=== PATIENT | male | born 1970 | race Caucasian/White ===

== ENCOUNTER 2016-03-12 05:44 | Emergency (ER) ==
[2016-03-12 05:57] VITALS: BP 148/91; TEMP 98.6; BMI 26.4
[2016-03-12] MEDS ORDERED: DECADRON 4 MG/ML SDV IM STA (06:03)
[2016-03-12] MEDS ORDERED: TORADOL IM STA (06:03)
--- NOTE | 2016-03-12 06:15 | ED.PDOC ---
General ED Provider: Dr. CARLOS ENRIQUE CORTES-ER Chief Complaint: Extremity Swelling/Pain Stated Complaint: my wrist is swollen--i didnt hurt it--i think its gout Time Seen by Physician: 05:50 Mode of Arrival: Walk-In Information Source: Patient Exam Limitations: No limitations Nursing and Triage Documentation Reviewed and Agree: Yes Musculoskeletal Complaint Exam - Hand/Wrist Complaint/Exam Location of Pain: Reports: Left, Wrist Mechanism of Injury: Reports: No known trauma Onset/Duration: several hours Symptoms Are: Still present Onset of Pain: Reports: Immediate Initial Severity: Mild Current Severity: Mild Location: Reports: Discrete (left wrist) Character: Reports: Stiffness Alleviating: Reports: None Aggravating: Reports: Movement Associated Signs and Symptoms: Reports: Swelling. Denies: Redness, Bruising, Fever, Weakness, Numbness, Tingling Hand/Wrist Findings: Present: Swelling, Warmth Tenderness: Present: Radius, Ulna Compartment Syndrome Risk Factors: Present: Pain. Absent: Paralysis, Pallor, Pulselessness, Paresthesias Differential Diagnoses: Gout, Sprain, Strain Review of Systems - Review Of Systems Constitutional: Reports: No symptoms Eyes: Reports: No symptoms Ears, Nose, Mouth, Throat: Reports: No symptoms Respiratory: Reports: No symptoms Cardiac: Reports: No symptoms GI: Reports: No symptoms : Reports: No symptoms Musculoskeletal: Reports: Joint pain, Joint swelling Skin: Reports: No symptoms Neurological: Reports: No symptoms Endocrine: Reports: No symptoms Hematologic/Lymphatic: Reports: No symptoms All Other Systems: Reviewed and Negative Past Medical History - Past Medical History Endocrine: Reports: Unknown Cardiovascular: Reports: Unknown Respiratory: Reports: Unknown Hematological: Reports: Unknown Gastrointestinal: Reports: Unknown Genitourinary: Reports: Unknown Neuro/Psych: Reports: Unknown Musculoskeletal: Reports: Gout Cancer: Reports: Unknown - Surgical History General Surgical History: Reports: Unknown - Family History Family History: Reports: Unknown - Social History Smoking Status: Current every day smoker, Heavy tobacco smoker Hx Substance Use: No Alcohol Screening: Occasionally Lives: With family - Immunizations Tetanus Shot up to Date: (UNKNOWN) Physical Exam - Physical Exam Appearance: Well-appearing, No pain distress, Well-nourished Pain Distress: Mild Eyes: SHARYN, EOMI, Conjunctiva clear ENT: Ears normal, Nose normal, Oropharynx normal Neck: Supple Respiratory: Airway patent Cardiovascular: RRR, Pulses normal, No rub, No murmur GI/: Soft Musculoskeletal: Limited ROM, Edema Skin: Warm, Dry, Normal color Neurological: Sensation intact, Motor intact, Reflexes intact, Cranial nerves intact, Alert, Oriented Psychiatric: Affect appropriate, Mood appropriate Interpretation - Radiology Interpretation Radiology Interpretation By: ED Physician Radiology Results: Negative Re-Evaluation - Re-Evaluation Time of Re-Evaluation: 07:04 Status: Improved Vital Signs Stable: Yes Pain Level: 0 Appearance: NAD Lungs: Clear Skin: Warm and Dry Neuro: Alert and Oriented X3 CV: RRR Physician Notification - Case Discussed Physician Notified: dr [email or web address] Time of Notification: 07:00 Critical Care Note - Critical Care Note Total Time (mins): 0 Course - Course Hematology/Chemistry: 03/12/16 06:40 03/12/16 06:40 Orders, Labs, Meds: Lab Review 03/12/16 06:40 WBC 10.88 H RBC 4.82 Hgb 16.1 Hct 47.1 MCV 97.7 H MCH 33.4 H MCHC 34.2 RDW Coeff of Shayne 11.9 Plt Count 231 Immature Gran % (Auto) 0.4 Neut % (Auto) 68.6 Lymph % (Auto) 18.5 [place] % (Auto) 10.9 H Eos % (Auto) 1.1 Baso % (Auto) 0.5 Immature Gran # (Auto) 0.0 Neut # 7.5 H Lymph # 2.0 [place] # 1.2 Eos # 0.1 Baso # 0.1 ESR 11 Sodium 136 Potassium 4.4 Chloride 102 Carbon Dioxide 24 Anion Gap 14.4 BUN 17 Creatinine 0.82 Estimated GFR (MDRD) 103.00 BUN/Creatinine Ratio 20.73 Glucose 133 H Uric Acid 6.9 Calcium 9.5 Total Bilirubin 0.52 AST 21 ALT 32 Alkaline Phosphatase 76 Total Protein 7.6 Albumin 4.0 Globulin 3.6 Albumin/Globulin Ratio 1.11 Orders Category Date Time Status CBC W/ AUTO DIFF Stat LAB 03/12/16 06:40 Completed COMPREHENSIVE METABOLIC PANEL Stat LAB 03/12/16 06:40 Completed ESR Stat LAB 03/12/16 06:40 Completed URIC ACID Stat LAB 03/12/16 06:40 Completed Dexamethasone 4 mg/ml Inj [Decadron 4 mg/ml Sdv] MEDS 03/12/16 06:03 Discontinued 8 mg IM ONCE STA Ketorolac Tromethamine [Toradol] MEDS 03/12/16 06:03 Discontinued 60 mg IM ONCE STA WRIST, LEFT 3 VIEWS Stat RADS 03/12/16 06:02 Completed Medications Discontinued Medications Generic Name Dose Route Start Last Admin Trade Name Edwar PRN Reason Stop Dose Admin Dexamethasone Sodium Phosphate 8 mg 03/12/16 06:03 03/12/16 06:14 Decadron 4 Mg/Ml Sdv IM 03/12/16 06:04 8 mg ONCE STA Administration Ketorolac Tromethamine 60 mg 03/12/16 06:03 03/12/16 06:15 Toradol IM 03/12/16 06:04 60 mg ONCE STA Administration Vital Signs: Temp Pulse Resp BP Pulse Ox 03/12/16 05:46 98.6 F 110 H 18 148/91 H 99 Departure - Departure Time of Disposition: 07:04 Disposition: HOME SELF-CARE Discharge Problem: Gout attack Qualifiers: Gout site: wrist Gout etiology: unspecified cause Laterality: left Qualifier Code: (M10.9) Gout, unspecified Instructions: Gout (ED), Low Purine Diet (ED) Condition: Good Pt referred to PMD for follow-up: Yes Additional Instructions: medrol dose pack--f/u with pcp Allergies/Adverse Reactions: Allergies No Known Drug Allergies Adverse Reaction (Verified 03/12/16 05:57) Home Medications: Ambulatory Orders Aspirin [Aspirin EC] 81 mg PO DAILYWM 03/12/16 Buspirone HCl 10 mg PO DAILY 03/12/16 Lisinopril 10 mg PO DAILY 03/12/16 Disposition Discussed With: Patient
[2016-03-12 06:47] LABS: BASOPHILS # (AUTO) 0.1 K/uL (0-0.2); BASOPHILS % (AUTO) 0.5 % (0.0-3.0); EOSINOPHILS # (AUTO) 0.1 K/ul (0.0-0.7); EOSINOPHILS % (AUTO) 1.1 % (0.0-7.0); HEMATOCRIT 47.1 % (42.0-52.0); HEMOGLOBIN 16.1 g/dl (14.0-18.0); IMMATURE GRANULOCYTE % (AUTO) 0.4 % (0.0-5.0); LYMPHOCYTES % (AUTO) 18.5 (10.0-50.0); MEAN CORPUSCULAR HEMOGLOBIN 33.4 pg (27.0-31.0); MEAN CORPUSCULAR HGB CONC 34.2 (31.8-35.4); MEAN CORPUSCULAR VOLUME 97.7 fl (80.0-94.0); MONOCYTES # (AUTO) 1.2 K/uL (0.4-2.0); MONOCYTES % (AUTO) 10.9 (0-10); NEUTROPHILS # (AUTO) 7.5 K/ul (2.0-6.9); NEUTROPHILS % (AUTO) 68.6; PLATELET COUNT 231 10^3/uL (140-440); RED BLOOD COUNT 4.82 10^6/ul (4.70-6.10); WHITE BLOOD COUNT 10.88 K/ul (4.2-10.2)
[2016-03-12 07:06] LABS: ALBUMIN/GLOBULIN RATIO 1.11; ANION GAP 14.4; BILIRUBIN,TOTAL 0.52 mg/dL (0.00-1.20); BUN/CREATININE RATIO 20.73; CALCIUM 9.5 mg/dL (8.2-10.2); CREATININE 0.82 mg/dL (0.60-1.10); POTASSIUM 4.4 mmol/L (3.5-5.1); TOTAL PROTEIN 7.6 g/dL (6.4-8.2); URIC ACID 6.9 mg/dL (2.6-7.2)
[2016-03-12 07:26] LABS: ERYTHROCYTE SEDIMENTATION RATE 11 mm/hr (0-15); ESR INTERNAL QC INTERNAL QC VALID
--- NOTE | 2016-03-12 08:07 | DI ---
EXAM: Three views of the left wrist. History: Left wrist pain and swelling. Findings: No acute fracture or dislocation. No abnormal calcifications or radiopaque foreign juve s. Mild to moderate narrowing of the first MCP joint. Soft tissue swelling at the wrist. Impression: No acute osseous abnormality. 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 Soft tissue swelling.
== END 2016-03-12 07:56 | disposition home or self-care (01) ==
LOC: ED 05:44
DX: M10.9 Gout, unspecified (principal); M25.532 Pain in left wrist
CPT/HCPCS: 36415; 80053; 84550; 85025; 85651; 96372; 99283